=== PATIENT | male | born 1975 | race Two or more races ===

== ENCOUNTER 2017-02-08 18:17 | Emergency (ER) | payer MEDICAID ==
[~2017-02-08] VITALS: Ht 175.3 cm; Wt 81.6 kg
[2017-02-08] MEDS ORDERED: NEXIUM (18:28)
[2017-02-08] MEDS ORDERED: METFORMIN (18:28)
--- NOTE | 2017-02-08 18:39 | NUR ---
MD at bedside evaluating the patient, pending MD orders
[2017-02-08] MEDS ORDERED: MISCELLANEOUS MED XX ONE (18:45)
[2017-02-08] MEDS ORDERED: HYDROCODONE/APAP 5-325MG TABLET PO ONE (18:45)
[2017-02-08] MEDS ORDERED: PENICILLIN G BENZATHINE 2.4 MMU/4 ML DISP.SYRIN IM ONE ×2 (19:00→19:10)
[2017-02-08] MEDS ORDERED: HYDROCODONE/APAP 5-325MG TABLET ONE (19:10)
--- NOTE | 2017-02-08 19:12 | NUR ---
No adverse rxn to bicillin IM shot. Patient discharged to home in stable conditon. Written and verbal after care instructions given to patient. Patient verbalizes understanding of instructions.
== END 2017-02-08 19:14 | disposition home or self-care (01) ==
LOC: ER 18:20
DX: K08.89 Other specified disorders of teeth and supporting structures (principal); E11.9 Type 2 diabetes mellitus without complications; K21.9 Gastro-esophageal reflux disease without esophagitis; Z79.4 Long term (current) use of insulin
CPT/HCPCS: 96372; 99283; A4663

== ENCOUNTER 2017-03-07 18:53 | Emergency (ER) | payer MEDICAID ==
[~2017-03-07] VITALS: Ht 175.3 cm; Wt 80.7 kg
[~2017-03-07 18:53] MED LIST: METFORMIN; NEXIUM
--- NOTE | 2017-03-07 19:24 | NUR ---
Received report. Assumed care of pt at this time. Pt resting in position of comfort for self. MD at bedside. Awaiting further orders.
[2017-03-07] MEDS ORDERED: IV NORMAL SALINE 500 ML BAG IV ONE (19:30)
[2017-03-07 19:59] LABS: BASOPHILS % (AUTO) 0.4 % (0.0-2.0); EOSINOPHILS # (AUTO) 0.1 K/uL (0.0-0.7); HEMATOCRIT 39.8 % (40-50); HEMOGLOBIN 13.4 G/DL (14.0-18.0); LYMPHOCYTES # (AUTO) 3.4 K/UL (0.8-4.8); LYMPHOCYTES % (AUTO) 31.3 % (20.5-51.5); MEAN CORPUSCULAR HEMOGLOBIN 31.2 UUG (27.0-31.0); MEAN CORPUSCULAR HGB CONC 34 g/dL (32.0-37.0); MEAN CORPUSCULAR VOLUME 92.8 FL (82.0-92.0); MONOCYTES # (AUTO) 0.7 K/UL (0.1-1.30); NEUTROPHILS # (AUTO) 6.6 K/UL (1.8-8.9); NEUTROPHILS % (AUTO) 61.3 % (38.5-71.5); PLATELET COUNT (AUTO) 278 K/UL (150-450); RED BLOOD CELL COUNT(AUTO) 4.28 MIL/UL (4.7-6.1); WHITE BLOOD COUNT (AUTO) 10.8 K/UL (4.0-11.2)
[2017-03-07] MEDS ORDERED: ASPIRIN 325 MG TABLET PO ONE (20:00)
[2017-03-07] MEDS ORDERED: NITROGLYCERIN 0.4 MG/TAB BOTTLE SL ONE (20:00)
[2017-03-07 20:03] LABS: POTASSIUM 3.4 mmol/L (3.5-5.1)
[2017-03-07] MEDS ORDERED: ASPIRIN 325 MG TABLET ONE (20:06)
--- NOTE | 2017-03-07 20:07 | NUR ---
Pt sts slight improvement from first tablet nitro SL. Second tablet given, will monitor for effects of medication.
[2017-03-07 20:19] LABS: BILIRUBIN,DIRECT 0.1 mg/dL (0.0-0.2); BILIRUBIN,TOTAL 0.2 mg/dL (0.2-1.0); TOTAL PROTEIN, SERUM 7.8 g/dL (6.4-8.2)
[2017-03-07] MEDS ORDERED: CLONIDINE HCL 0.2 MG TABLET PO ONE (20:30)
[2017-03-07] MEDS ORDERED: MAG HYDROX/AL HYDROX/SIMETH 30 ML LIQUID UDC PO ONE (20:30)
[2017-03-07] MEDS ORDERED: DICYCLOMINE HCL 10 MG/5 ML UDC LIQ PO ONE (20:30)
[2017-03-07] MEDS ORDERED: CLONIDINE HCL 0.2 MG TABLET ONE (20:50)
[2017-03-07] MEDS ORDERED: MAG HYDROX/AL HYDROX/SIMETH 30 ML LIQUID UDC ONE ×2 (20:51)
[2017-03-07] MEDS ORDERED: DICYCLOMINE HCL 10 MG/5 ML UDC LIQ ONE (20:52)
--- NOTE | 2017-03-07 21:16 | NUR ---
MD aware of pts blood pressure. Pt admits to drinking 2 cups of coffee and 3 energy drinks. Pt stable for discharge per MD. IV dc'd, catheter intact. Drsg applied. No problems noted to site. Pt given ACI. Pt verbalized understanding of dc instructions. 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
[2017-03-07 21:18] VITALS: BP 161/105
== END 2017-03-07 21:20 | disposition home or self-care (01) ==
LOC: ER 18:57
DX: K21.9 Gastro-esophageal reflux disease without esophagitis (principal); E11.9 Type 2 diabetes mellitus without complications
CPT/HCPCS: 36415; 70030-TC; 71010; 85025; 85730; 93005; A4663; J7040

== ENCOUNTER 2018-09-19 15:30 | Emergency (ER) | payer MEDICAID ==
[~2018-09-19] VITALS: Ht 175.3 cm; Wt 81.2 kg
--- NOTE | 2018-09-19 15:41 | NUR ---
PT A/OX4, PRESENTS TO THE ER C/O INTERMITTENT LLQ ABD PAIN THAT STARTED APPROXIMATELY 10 DAYS AGO, PROVOKED FOLLOWING FOOD CONSUMPTION, DOES NOT RADIATE, 05/11. ABD SOUNDS ACTIVE IN ALL 4 QUADRANTS, VSS. PT DENIES C/P, SOB, N/V/D, DIZZIESS, HEADACHE.
--- NOTE | 2018-09-19 15:56 | NUR ---
KATIE BRADLEY AT BEDSIDE FOR MSE.
[2018-09-19] MEDS ORDERED: IV NORMAL SALINE 1000 ML BAG IV ONE (16:00)
--- NOTE | 2018-09-19 16:12 | NUR ---
AERIAL APPLICATOR PILOT AT BEDSIDE.
--- NOTE | 2018-09-19 16:15 | NUR ---
REPEATER OPERATOR AT BEDSIDE.
--- NOTE | 2018-09-19 16:27 | NUR ---
PT TAKEN TO RADIOLOGY FOR CT SCAN.
[2018-09-19 16:28] LABS: BASOPHILS # (AUTO) 0.1 K/uL (0.0-8.0); BASOPHILS % (AUTO) 0.9 % (0.0-2.0); EOSINOPHILS # (AUTO) 0.3 K/uL (0.0-0.7); EOSINOPHILS % (AUTO) 3.4 % (0.0-7.0); HEMATOCRIT 40.1 % (36.7-47.1); HEMOGLOBIN 13.9 g/dL (12.5-16.3); LYMPHOCYTES # (AUTO) 3.7 K/uL (20.0-40.0); LYMPHOCYTES % (AUTO) 40.9 % (20.5-51.5); MEAN CORPUSCULAR HEMOGLOBIN 32.5 uug (23.8-33.4); MEAN CORPUSCULAR HGB CONC 35 g/dL (32.5-36.3); MEAN CORPUSCULAR VOLUME 94.1 fL (73.0-96.2); MONOCYTES # (AUTO) 0.6 K/uL (2.0-10.0); MONOCYTES % (AUTO) 6.4 % (0.0-11.0); NEUTROPHILS # (AUTO) 4.3 K/uL (1.8-8.9); NEUTROPHILS % (AUTO) 48.4 % (38.5-71.5); PLATELET COUNT (AUTO) 301 K/uL (152-348); RED BLOOD CELL COUNT(AUTO) 4.27 MIL/uL (4.06-5.63)
[2018-09-19 16:37] LABS: POTASSIUM 3.8 mmol/L (3.5-5.1)
[2018-09-19 16:39] LABS: *BILIRUBIN,URIN NEGATIVE (NEGATIVE); *BLOOD, URINE NEGATIVE (NEGATIVE); *CLARITY,URINE CLEAR (CLEAR); *COLOR,URINE YELLOW (YELLOW); *KETONES,URINE NEGATIVE (NEGATIVE); *UROBILINOGEN,URINE 0.2 E.U./dl (NORMAL); LEUKOCYTE ESTERASE ,URINE NEGATIVE (NEGATIVE); NITRITE, URINE NEGATIVE (NEGATIVE); PH,URINE 5.5 (5.0-8.0); UGLUCOSE NEGATIVE (NEGATIVE)
[2018-09-19 16:44] LABS: BILIRUBIN,DIRECT 0.1 mg/dL (0.0-0.2); BILIRUBIN,TOTAL 0.4 mg/dL (0.2-1.0); TOTAL PROTEIN, SERUM 7.7 g/dL (6.4-8.2)
--- NOTE | 2018-09-19 16:48 | NUR ---
PT BACK IN ER FROM RADIOLOGY.
--- NOTE | 2018-09-19 17:41 | NUR ---
Patient discharged to home in stable conditon. Written and verbal after care instructions given. Patient verbalizes understanding of instructions. ALL BELONGINGS W/ PT. PT SELF-AMBULATED W/O DIFFICULTY. 20G IV ACCESS IN L AC REMOVED PRIOR TO D/C - INNER CANNULA INTACT. PT PROVIDED W/ RADIOLOGICAL IMAGING CD.
[2018-09-19 17:44] VITALS: BP 144/80
== END 2018-09-19 17:48 | disposition home or self-care (01) ==
LOC: ER 15:30
DX: R10.32 Left lower quadrant pain (principal); K21.9 Gastro-esophageal reflux disease without esophagitis; E11.9 Type 2 diabetes mellitus without complications; Z90.49 Acquired absence of other specified parts of digestive tract; Z79.899 Other long term (current) drug therapy
CPT/HCPCS: 36415; 70030-TC; 71045; 83690; 85025; 85730; 93005; A4663; J7030; J7040

== ENCOUNTER 2019-04-27 17:27 | Inpatient (IN) | payer MEDICAID ==
[~2019-04-27] VITALS: Ht 175.3 cm; Wt 81.6 kg
--- NOTE | 2019-04-27 17:36 | NUR ---
DR GUZMAN AT THE BEDSIDE FOR MSE.
[2019-04-27 17:53] LABS: BASOPHILS # (AUTO) 0.1 K/uL (0.0-8.0); BASOPHILS % (AUTO) 0.8 % (0.0-2.0); EOSINOPHILS % (AUTO) 0.1 % (0.0-7.0); HEMATOCRIT 38.8 % (36.7-47.1); HEMOGLOBIN 13.2 g/dL (12.5-16.3); LYMPHOCYTES # (AUTO) 2.4 K/uL (20.0-40.0); LYMPHOCYTES % (AUTO) 21.3 % (20.5-51.5); MEAN CORPUSCULAR HEMOGLOBIN 31.6 uug (23.8-33.4); MEAN CORPUSCULAR HGB CONC 34 g/dL (32.5-36.3); MEAN CORPUSCULAR VOLUME 92.6 fL (73.0-96.2); MONOCYTES # (AUTO) 0.5 K/uL (2.0-10.0); MONOCYTES % (AUTO) 4.7 % (0.0-11.0); NEUTROPHILS # (AUTO) 8.2 K/uL (1.8-8.9); NEUTROPHILS % (AUTO) 73.1 % (38.5-71.5); PLATELET COUNT (AUTO) 295 K/uL (152-348); RED BLOOD CELL COUNT(AUTO) 4.18 MIL/uL (4.06-5.63); WHITE BLOOD COUNT (AUTO) 11.2 K/uL (3.6-10.2)
[2019-04-27 18:02] LABS: CREATININE 1.1 mg/dL (0.6-1.3); POTASSIUM 3.7 mmol/L (3.5-5.1)
[2019-04-27 18:08] LABS: BILIRUBIN,DIRECT 0.1 mg/dL (0.0-0.2); BILIRUBIN,TOTAL 0.7 mg/dL (0.2-1.0); TOTAL PROTEIN, SERUM 8.2 g/dL (6.4-8.2)
[2019-04-27] MEDS ORDERED: CLONIDINE HCL 0.2 MG TABLET PO ONE (18:45)
[2019-04-27] MEDS ORDERED: IV NORMAL SALINE 1000 ML BAG IV ONE (18:45)
[2019-04-27] MEDS ORDERED: CLONIDINE HCL 0.2 MG TABLET ONE (18:51)
--- NOTE | 2019-04-27 18:55 | NUR ---
Pt out of ER for CT.
--- NOTE | 2019-04-27 19:00 | NUR ---
pt hand off and sbar received from outgoing day shift rn pt nad, talking with relative. denies pain, on supine hooked to the panel monitor. siderailsx2 up kept warm safe and comfortable. IVF at R AC infusing well. Pt will be admitted under Dr Webster, TELE, Rm [id number] Pt able to tolerate dinner (regular/ dm) Pt aware of admission.
[2019-04-27 19:05] LABS: *BILIRUBIN,URIN NEGATIVE (NEGATIVE); *BLOOD, URINE NEGATIVE (NEGATIVE); *CLARITY,URINE CLEAR (CLEAR); *COLOR,URINE LIGHT YELLOW (YELLOW); *KETONES,URINE TRACE (NEGATIVE); *UROBILINOGEN,URINE 0.2 E.U./dl (NORMAL); LEUKOCYTE ESTERASE ,URINE NEGATIVE (NEGATIVE); NITRITE, URINE NEGATIVE (NEGATIVE); UGLUCOSE NEGATIVE (NEGATIVE)
[2019-04-27 19:11] LABS: WBC,URINE NONE SEEN /HPF (0-3)
--- NOTE | 2019-04-27 19:42 | NUR ---
Dr. Giang on panel call with Dr. Darin Bowling. Patient accepted for admission to [facility], diagnosis: dehydration.
--- NOTE | 2019-04-27 21:10 | NUR ---
HAND OFF AND SBAR DONE TO NILAM MARQUEZ FOR TELE ROLLOVER CONFIRMED. PT STEPPED OUT OF ER TO SMOKE BUT STATES HE WILL COME BACK.
--- NOTE | 2019-04-27 21:19 | NUR ---
PT TRANSPORTED VIA GURNEY ACCOMPANIED BY STEVE ROCK PT NAD SIDERAILS X2 UP KEPT WARM SAFE AND COMFORTABLE
--- NOTE | 2019-04-27 21:25 | NUR ---
PATIENT RECEIVED VIA GURNEY WITH BELONGINGS, PATIENT IS ALERT AND ORIENTED X 4 , VERY PLEASANT AND COOPERATIVE. AT THIS TIME DENIES CHEST PAIN AND SOB BUT PRESENTS WITH NAUSEA. PATIENT IS ABLE TO AMBULATE ON OWN, GAIT IS STEADY. BLOOD PRESSURE STABLE 126/81 HR 98. IV ACCESS PATENT ON RIGHT AC. ORIENTED PATIENT TO ROOM AND CALL LIGHT. BED LOCKED IN POSITION SIDE RAILS UP X 2. WILL CONTINUE TO MONITOR.
[2019-04-27 21:40] VITALS: BP 126/81
[2019-04-27] MEDS ORDERED: DEXTROSE 50% 50 ML DISP.SYRIN IV PRN (21:45)
[2019-04-27] MEDS ORDERED: ONDANSETRON 4 MG/2 ML VIAL IV PRN (21:45)
[2019-04-27] MEDS ORDERED: HYDROCODONE/APAP 5-325MG TABLET PO PRN (21:45)
[2019-04-27] MEDS ORDERED: CLONIDINE HCL 0.1 MG TABLET PO PRN (21:45)
[2019-04-27] MEDS: METOPROLOL TARTRATE 25 MG TABLET PO SCH (22:03)
[2019-04-27 23:03] LABS: *AMPHETAMINE, URINE NEGATIVE (NEGATIVE); *BARBITURATE, URINE NEGATIVE (NEGATIVE); *CANNABINOID, URINE NEGATIVE (NEGATIVE); *COCCAINE, URINE NEGATIVE (NEGATIVE); *OPIATE, URINE NEGATIVE (NEGATIVE); *PHENCYCLIDINE SCREEN,URINE NEGATIVE (NEGATIVE)
[2019-04-27] MEDS: ZOLPIDEM 5 MG TABLET PO PRN (23:50)
[2019-04-28 01:00] VITALS: BP 134/83
[2019-04-28 04:45] VITALS: BP 140/94
[2019-04-28] MEDS: PANTOPRAZOLE SODIUM 40 MG TABLET.DR PO SCH (06:01)
[2019-04-28] MEDS: BLOOD SUGAR DIAGNOSTIC 1 EACH STRIP VI SCH ×4 (06:35→20:46)
[2019-04-28 06:43] LABS: BASOPHILS # (AUTO) 0.1 K/uL (0.0-8.0); BASOPHILS % (AUTO) 0.7 % (0.0-2.0); EOSINOPHILS # (AUTO) 0.1 K/uL (0.0-0.7); EOSINOPHILS % (AUTO) 1.7 % (0.0-7.0); HEMATOCRIT 36.9 % (36.7-47.1); HEMOGLOBIN 12.9 g/dL (12.5-16.3); LYMPHOCYTES # (AUTO) 2.8 K/uL (20.0-40.0); LYMPHOCYTES % (AUTO) 35.8 % (20.5-51.5); MEAN CORPUSCULAR HEMOGLOBIN 32.2 uug (23.8-33.4); MEAN CORPUSCULAR HGB CONC 35 g/dL (32.5-36.3); MEAN CORPUSCULAR VOLUME 92.1 fL (73.0-96.2); MONOCYTES # (AUTO) 0.6 K/uL (2.0-10.0); MONOCYTES % (AUTO) 8.2 % (0.0-11.0); NEUTROPHILS # (AUTO) 4.2 K/uL (1.8-8.9); NEUTROPHILS % (AUTO) 53.6 % (38.5-71.5); PLATELET COUNT (AUTO) 271 K/uL (152-348); RED BLOOD CELL COUNT(AUTO) 4.01 MIL/uL (4.06-5.63); WHITE BLOOD COUNT (AUTO) 7.8 K/uL (3.6-10.2)
--- NOTE | 2019-04-28 06:56 | NUR ---
Patient slept well last night , denies any chest pain, SOB or nausea. bed in lock position , call light is within reach. Vs stable. IV Access site remains intact and patent , labs were drawn in AM . Patient is in no apprent distress. Underground Drill Operator remains intact reading sinus rhythm HR 78.Endorsed to AM shift.
[2019-04-28 07:02] LABS: MAGNESIUM 1.9 mg/dL (1.8-2.4); PHOSPHOROUS 4.4 mg/dL (2.5-4.9); POTASSIUM 3.5 mmol/L (3.5-5.1)
[2019-04-28 07:40] VITALS: BP 132/92
[2019-04-28] MEDS: INSULIN REGULAR, HUMAN 300 UNIT/3 ML VIAL SQ PRN ×4 (07:48→20:48)
[2019-04-28] MEDS: METOPROLOL TARTRATE 25 MG TABLET PO SCH (08:30)
[2019-04-28] MEDS: ASPIRIN 81 MG TAB.CHEW PO SCH (08:30)
[2019-04-28] MEDS: METFORMIN HCL 500 MG TABLET PO SCH ×2 (08:30→17:17)
[2019-04-28 11:12] VITALS: BP 136/86
[2019-04-28] MEDS ORDERED: METOPROLOL TARTRATE 50 MG TABLET PO SCH (11:45)
[2019-04-28] MEDS: ACETAMINOPHEN 325 MG TABLET PO PRN ×2 (11:46→18:26)
[2019-04-28 15:30] VITALS: BP 133/89
[2019-04-28] MEDS ORDERED: SWABABLE VALVE TRANSFER SET EA MC ONE (17:44)
[2019-04-28] MEDS ORDERED: IV NORMAL SALINE 250 ML IV ONE (17:44)
[2019-04-28] MEDS ORDERED: IOHEXOL 350 100 ML INFUS..BTL ONE (17:44)
--- NOTE | 2019-04-28 18:05 | NUR ---
PATIENT RESTED THROUGHOUT DAY. NO DISTRESS NOTED. SAFETY MEASURES PROVIDED. PATIENT HAD A CTA OF THE BRAIN WITH CONTRAST. PATIENT SEEN BY NEUROLOGIST. NO ACUTE DISTRESS NOTED DURING SHIFT.
[2019-04-28 20:03] VITALS: BP_SYST 140; BP_DIAS 89; BP_DIAS 92
[2019-04-28] MEDS: METOPROLOL TARTRATE 50 MG TABLET PO SCH (20:41)
[2019-04-28] MEDS ORDERED: ATORVASTATIN 20 MG TABLET PO SCH (21:00)
[2019-04-28] MEDS ORDERED: NORTRIPTYLINE HCL 25 MG CAPSULE PO SCH (21:00)
[2019-04-28] MEDS ORDERED: ATORVASTATIN 10 MG TABLET PO SCH ×2 (21:00)
[2019-04-28] MEDS: ZOLPIDEM 5 MG TABLET PO PRN (22:04)
[2019-04-29 00:28] VITALS: BP 136/94
--- NOTE | 2019-04-29 01:02 | NUR ---
RECEIVED PT AWAKE. ALERT AND ORIENTEDX4. PT SHOWS NO SIGNS OF ACUTE DISTRESS. IV INTACT. AT BEDSIDE. SAFETY AND COMFORT PROVIDED. WILL CONTINUE TO MONITOR.
[2019-04-29 04:00] VITALS: BP 126/86
[2019-04-29] MEDS: PANTOPRAZOLE SODIUM 40 MG TABLET.DR PO SCH (06:02)
--- NOTE | 2019-04-29 06:22 | NUR ---
PT SLEPT THROUGHOUT THE SHIFT. PT SHOWS NO SIGNS OF ACUTE DISTRESS. IV INTACT. PRESCRIBED MEDICATION GIVEN AND PT TOLERATED IT WELL. SAFETY AND COMFORT PROVIDED. ALL NEEDS ARE MET. WILL ENDORSE ACCORDINGLY TO INCOMING NURSE FOR CONTINUITY OF CARE.
[2019-04-29] MEDS: BLOOD SUGAR DIAGNOSTIC 1 EACH STRIP VI SCH ×3 (06:35→16:30)
[2019-04-29 06:37] LABS: BASOPHILS % (AUTO) 0.5 % (0.0-2.0); EOSINOPHILS # (AUTO) 0.2 K/uL (0.0-0.7); EOSINOPHILS % (AUTO) 1.8 % (0.0-7.0); HEMATOCRIT 38.3 % (36.7-47.1); HEMOGLOBIN 13.4 g/dL (12.5-16.3); LYMPHOCYTES # (AUTO) 3.6 K/uL (20.0-40.0); LYMPHOCYTES % (AUTO) 41.6 % (20.5-51.5); MEAN CORPUSCULAR HEMOGLOBIN 32.1 uug (23.8-33.4); MEAN CORPUSCULAR HGB CONC 35 g/dL (32.5-36.3); MEAN CORPUSCULAR VOLUME 91.9 fL (73.0-96.2); MONOCYTES # (AUTO) 0.6 K/uL (2.0-10.0); MONOCYTES % (AUTO) 7.1 % (0.0-11.0); NEUTROPHILS # (AUTO) 4.2 K/uL (1.8-8.9); PLATELET COUNT (AUTO) 266 K/uL (152-348); RED BLOOD CELL COUNT(AUTO) 4.17 MIL/uL (4.06-5.63); WHITE BLOOD COUNT (AUTO) 8.6 K/uL (3.6-10.2)
[2019-04-29 06:49] LABS: CREATININE 1.1 mg/dL (0.6-1.3); MAGNESIUM 1.8 mg/dL (1.8-2.4); PHOSPHOROUS 4.5 mg/dL (2.5-4.9); POTASSIUM 3.6 mmol/L (3.5-5.1)
--- NOTE | 2019-04-29 07:05 | NUR ---
Patient in bed, awake and verbally responsive. No sins of Respiratory distress noted. No complain of Pain or Discomfort. Denies Chest Pain. Will continue to monitor. Right AC IV site Intact. Will continue to monitor.
[2019-04-29] MEDS: INSULIN REGULAR, HUMAN 300 UNIT/3 ML VIAL SQ PRN (08:04)
[2019-04-29] MEDS: METOPROLOL TARTRATE 50 MG TABLET PO SCH (08:49)
[2019-04-29] MEDS: ASPIRIN 81 MG TAB.CHEW PO SCH (08:49)
--- NOTE | 2019-04-29 09:58 | NUR ---
Patient was Picked up by [address] Angiogram at [facility].
--- NOTE | 2019-04-29 11:30 | NUR ---
patient came back from [facility] in stable condition.
[2019-04-29 11:43] VITALS: BP 157/101
[2019-04-29] MEDS ORDERED: ATOR20TA PO (12:26)
[2019-04-29] MEDS ORDERED: METO50TA16 PO (12:26)
[2019-04-29] MEDS ORDERED: NORT25CA PO (12:26)
[2019-04-29] MEDS ORDERED: ASPI81TA31 PO (12:26)
[2019-04-29] MEDS: ACETAMINOPHEN 325 MG TABLET PO PRN (13:41)
[2019-04-29 15:10] VITALS: BP 144/95
--- NOTE | 2019-04-29 16:00 | NUR ---
Received a discharge Order, with Discharge instructions: Discharge instructions <1. DC home2. take Lopressor, ASA, statin, and nortriptyline as ordered3., f/u with you OP wire wrapper machine operator and PCP in the next week4. smoking cessation, and avoid alcohol abuse>
--- NOTE | 2019-04-29 16:54 | NUR ---
Patient alert and oriented. No signs of respiratory distress noted. No SOB. No complain of pain or discomfort. denies Chest pain. Ambulatory steady. CTA Angigram done today at [facility], Cleared by LOC Schwarz, Discharge Instruction explained to patient and verbalized Understanding. Pharmacist Explained New Prescriptions to patient . All belongings was sent to patient. IV site Access, cadiac monitor and Wrist band was removed. patient Going Home via Private car accompanied by family.
== END 2019-04-29 17:05 | disposition home or self-care (01) | DRG 54 ==
LOC: ER 17:27 → TELE3 21:09 → MEDSURG3 04-29 13:02
PROVIDERS: ADMIT Internal Medicine; ATTEND Internal Medicine
PROC: B221YZZ Computerized Tomography (CT Scan) of Multiple Coronary Arteries using Other Contrast (ICD-10-PCS; principal; 2019-04-29)
DX: G43.109 Migraine with aura, not intractable, without status migrainosus (principal); E11.65 Type 2 diabetes mellitus with hyperglycemia; R07.89 Other chest pain; R00.0 Tachycardia, unspecified; F17.210 Nicotine dependence, cigarettes, uncomplicated; K21.9 Gastro-esophageal reflux disease without esophagitis; Z87.820 Personal history of traumatic brain injury; Z79.84 Long term (current) use of oral hypoglycemic drugs; Z82.49 Family history of ischemic heart disease and other diseases of the circulatory system; Z83.3 Family history of diabetes mellitus; I10 Essential (primary) hypertension; E66.9 Obesity, unspecified; Z68.26 Body mass index [BMI] 26.0-26.9, adult; E78.5 Hyperlipidemia, unspecified
CPT/HCPCS: 36415; 70030-TC; 70450; 70496; 71045; 80307; 83735; 84100; 85025; 93005; 93307; A4663; G0378; J1815; J2405; J7030; J7050; Q9967

== ENCOUNTER 2021-03-09 21:51 | Inpatient (IN) | payer BC, MEDICAID ==
[~2021-03-09] VITALS: Ht 175.3 cm; Wt 81.6 kg
[~2021-03-09 21:51] MED LIST changes: +ASPI81TA31 PO; +ATOR20TA PO; +METO50TA16 PO; +NORT25CA PO
--- NOTE | 2021-03-09 22:45 | NUR ---
Pt. arrived from home, chief complaint is cough with brown sputum, fever, weakness, and chills. Pt. has hx of medication controlled dm. Pt. also had pneumonia onces 11 yrs prior. Pt. took a 5 day course of zithromax but symptoms have worsened. Pt. Vss. Will continue to monitor.
[2021-03-09] MEDS ORDERED: DEXAMETHASONE SOD PHOSPHATE 4 MG INJ IV ONE (23:30)
[2021-03-09] MEDS ORDERED: CEFTRIAXONE 2 G in IV DEXTROSE 5% 100 ML IV ONE (23:30)
[2021-03-09] MEDS ORDERED: AZITHROMYCIN IV 500 MG in IV DEXTROSE 5% 250 ML IV ONE (23:30)
[2021-03-09 23:33] LABS: HEMATOCRIT 37.3 % (36.7-47.1); MEAN CORPUSCULAR HEMOGLOBIN 31.3 uug (23.8-33.4); MEAN CORPUSCULAR VOLUME 94.5 fL (73.0-96.2); PLATELET COUNT (AUTO) 200 K/uL (152-348)
[2021-03-09 23:43] LABS: CREATININE 1.2 mg/dL (0.6-1.3); POTASSIUM 4.4 mmol/L (3.5-5.1)
[2021-03-09 23:54] LABS: BILIRUBIN,DIRECT 0.1 mg/dL (0.0-0.2); BILIRUBIN,TOTAL 0.2 mg/dL (0.2-1.0); TOTAL PROTEIN, SERUM 7.4 g/dL (6.4-8.2)
[2021-03-10] MEDS ORDERED: CEFTRIAXONE /D5W 50ML IVPB **ER PYXIS IV ONE (00:08)
[2021-03-10] MEDS ORDERED: DEXAMETHASONE SOD PHOSPHATE 10 MG INJ ONE (00:08)
--- NOTE | 2021-03-10 01:00 | NUR ---
Dr. Giang on panel call with Werner Jones DNP.
[2021-03-10] MEDS ORDERED: DEXTROSE 50% 50 ML DISP.SYRIN IV PRN (01:15)
[2021-03-10] MEDS ORDERED: ACETAMINOPHEN 325 MG TABLET PO PRN (01:15)
[2021-03-10] MEDS ORDERED: ONDANSETRON 4 MG/2 ML VIAL IV PRN (01:15)
[2021-03-10] MEDS ORDERED: INSULIN REGULAR, HUMAN 300 UNIT/3 ML VIAL SQ PRN (01:15)
[2021-03-10] MEDS ORDERED: MAGNESIUM HYDROXIDE 30 ML LIQUID UDC PO PRN (01:15)
[2021-03-10] MEDS ORDERED: IV NS 1000 ML 1,000 ML IV PRN (01:15)
[2021-03-10] MEDS ORDERED: Z GUARD REMEDY PASTE 57 GM TUBE TOP PRN (01:15)
[2021-03-10] MEDS ORDERED: AZIT250T13 PO (01:47)
[2021-03-10] MEDS ORDERED: METF-494 PO (01:47)
[2021-03-10] MEDS ORDERED: ACET-2154 PO (01:47)
[2021-03-10] MEDS ORDERED: AZITHROMYCIN 500MG/ D5W 250ML IVPB **ER PYXIS ONLY IV ONE (02:30)
--- NOTE | 2021-03-10 03:00 | NUR ---
Pt. resting in bed, sleeping intermittently. Vss. Pt. is stable, denies any new onset sob or chest pain. Pt. continues to have cough. Pt. had chills and sweating. Pt. afebrile. Pt. provided clean dry clothes and linens. Pt. offered food, water, and blankets. Will continue to monitor.
--- NOTE | 2021-03-10 05:09 | NUR ---
Spoke with warehouse operations associate, currently waiting for an available private room for pt. to be admitted since pcr test is pending, pt. is still rule out covid per wet pour supervisor.
--- NOTE | 2021-03-10 06:56 | NUR ---
Gave report to JIMMY Diop.
[2021-03-10] MEDS ORDERED: PANTOPRAZOLE SODIUM 40 MG TABLET.DR PO SCH (07:00)
[2021-03-10] MEDS: BLOOD SUGAR DIAGNOSTIC 1 EACH STRIP VI SCH ×2 (07:30→08:41)
[2021-03-10] MEDS ORDERED: PANTOPRAZOLE SODIUM 40 MG TABLET.DR PO ONE (07:32)
[2021-03-10] MEDS ORDERED: INSULIN REGULAR, HUMAN 300 UNIT/3 ML VIAL ONE (07:39)
--- NOTE | 2021-03-10 08:03 | NUR ---
PT HAD DIABETIC TRAY BREAKFAST.
--- NOTE | 2021-03-10 09:45 | NUR ---
Yogi Gallagher,DNP in to see pt and stated pt to be discharged home.
[2021-03-10] MEDS ORDERED: GLYB5TAB7 PO (10:05)
[2021-03-10] MEDS ORDERED: PRED20TA PO (10:05)
[2021-03-10] MEDS ORDERED: DOXY-326 PO (10:05)
[2021-03-10] MEDS ORDERED: AMOX-427 PO (10:05)
[2021-03-10] MEDS ORDERED: ALBU6.7H9 INH (10:05)
--- NOTE | 2021-03-10 10:38 | NUR ---
Patient discharged to home in stable condition. Written and verbal after care instructions given. Patient verbalizes understanding of instructions. Stressed follow up or return to ER for worsening s/s.
--- NOTE | 2021-03-10 10:38 | NUR ---
IV removed. Catheter intact and site benign. Pressure and 4x4 gauze applied to site. No bleeding noted.
[2021-03-10 10:39] VITALS: BP 132/89
[2021-03-11] MEDS ORDERED: CEFTRIAXONE 2 G in IV DEXTROSE 5% 100 ML IV SCH
== END 2021-03-10 10:38 | disposition home or self-care (01) | DRG 177 ==
LOC: ER 21:51 → TRANSITION 03-10 02:39
PROVIDERS: ADMIT Nurse Practitioner Acute Care; ATTEND Nurse Practitioner Acute Care
DX: U07.1 COVID-19 (principal); J12.82 Pneumonia due to coronavirus disease 2019; J15.9 Unspecified bacterial pneumonia; J44.0 Chronic obstructive pulmonary disease with (acute) lower respiratory infection; E78.5 Hyperlipidemia, unspecified; F17.210 Nicotine dependence, cigarettes, uncomplicated; I10 Essential (primary) hypertension; E11.9 Type 2 diabetes mellitus without complications; Z79.84 Long term (current) use of oral hypoglycemic drugs
CPT/HCPCS: 36415; 70030-TC; 71045; 85025; 87040; 87070; A4663; G0378; J0456; J0696; J1100; J1815; J7030; U0003

== ENCOUNTER 2021-10-19 16:21 | Emergency (ER) | payer MEDICAID ==
[~2021-10-19] VITALS: Ht 175.3 cm; Wt 81.6 kg
[~2021-10-19 16:21] MED LIST changes: +ACET-2154 PO; +ALBU6.7H9 INH; +AMOX-427 PO; +DOXY-326 PO; +GLYB5TAB7 PO; +METF-494 PO; -METFORMIN; -NEXIUM; -NORT25CA PO; +PRED20TA PO
[2021-10-19] MEDS ORDERED: MAG HYDROX/AL HYDROX/SIMETH 30 ML LIQUID UDC PO ONE (16:45)
[2021-10-19] MEDS ORDERED: FAMOTIDINE. 20 MG/2 ML VIAL IV ONE ×2 (16:45→17:00)
[2021-10-19] MEDS ORDERED: LIDOCAINE VISCUS 2% 15 ML UDC MM ONE (16:45)
[2021-10-19] MEDS ORDERED: IV NORMAL SALINE 1000 ML BAG IV ONE (16:45)
[2021-10-19] MEDS ORDERED: MAG HYDROX/AL HYDROX/SIMETH 30 ML LIQUID UDC ONE (16:59)
[2021-10-19] MEDS ORDERED: LIDOCAINE VISCUS 2% 15 ML UDC ONE (16:59)
[2021-10-19 17:09] LABS: HEMATOCRIT 37.4 % (36.7-47.1); MEAN CORPUSCULAR HEMOGLOBIN 32.1 uug (23.8-33.4); MEAN CORPUSCULAR VOLUME 93.3 fL (73.0-96.2); PLATELET COUNT (AUTO) 330 K/uL (152-348)
[2021-10-19 17:11] LABS: *BILIRUBIN,URIN NEGATIVE (NEGATIVE); *BLOOD, URINE NEGATIVE (NEGATIVE); *CLARITY,URINE CLEAR (CLEAR); *COLOR,URINE YELLOW (YELLOW); *KETONES,URINE NEGATIVE (NEGATIVE); *UROBILINOGEN,URINE 0.2 E.U./dl (NORMAL); LEUKOCYTE ESTERASE ,URINE NEGATIVE (NEGATIVE); NITRITE, URINE NEGATIVE (NEGATIVE); UGLUCOSE NEGATIVE (NEGATIVE)
[2021-10-19 17:16] LABS: CREATININE 1.1 mg/dL (0.6-1.3); POTASSIUM 3.6 mmol/L (3.5-5.1)
[2021-10-19 17:22] LABS: BILIRUBIN,DIRECT 0.1 mg/dL (0.0-0.2); BILIRUBIN,TOTAL 0.4 mg/dL (0.2-1.0); TOTAL PROTEIN, SERUM 7.8 g/dL (6.4-8.2)
[2021-10-19] MEDS ORDERED: FAMO-132 PO ×2 (18:14→18:18)
[2021-10-19] MEDS ORDERED: ONDA4TAB5 PO ×2 (18:14→18:18)
[2021-10-19] MEDS ORDERED: SIME125T3 PO (18:18)
[2021-10-19 18:33] VITALS: BP 129/86
== END 2021-10-19 18:34 | disposition home or self-care (01) ==
LOC: ER 16:23
DX: R10.13 Epigastric pain (principal); E11.65 Type 2 diabetes mellitus with hyperglycemia; I10 Essential (primary) hypertension; E78.5 Hyperlipidemia, unspecified; F17.210 Nicotine dependence, cigarettes, uncomplicated; Z90.49 Acquired absence of other specified parts of digestive tract; Z79.82 Long term (current) use of aspirin; Z79.899 Other long term (current) drug therapy
CPT/HCPCS: 36415; 71045; 76705; 80048; 80076; 81003; 83690; 85025; 96361; 96374; 99285; 99406; J3490; A4663; J7030

== ENCOUNTER 2022-09-21 22:39 | Emergency (ER) | payer MEDICAID ==
[~2022-09-21] VITALS: Ht 175.3 cm; Wt 82.6 kg
[~2022-09-21 22:39] MED LIST changes: +FAMO-132 PO; +ONDA4TAB5 PO; +SIME125T3 PO
--- NOTE | 2022-09-21 23:54 | NUR ---
Dr. Azevedo at bedside. MSE in pprogress.
[2022-09-22] MEDS ORDERED: AMOXICILLIN-CLAVUL 875-125MG TABLET PO ONE
[2022-09-22] MEDS ORDERED: OXYCODONE/APAP 5-325 MG TABLET PO ONE
[2022-09-22] MEDS ORDERED: OXYCODONE/APAP 5-325 MG TABLET ONE (00:07)
[2022-09-22] MEDS ORDERED: AMOXICILLIN-CLAVUL 875-125MG TABLET ONE (00:07)
[2022-09-22] MEDS ORDERED: HYDR-3980 PO (00:22)
[2022-09-22] MEDS ORDERED: AMOX-430 PO (00:22)
[2022-09-22] MEDS ORDERED: BLOO-1730 MC (00:25)
--- NOTE | 2022-09-22 00:34 | NUR ---
Patient discharged to home in stable condition with . A/O x 4. NAD noted. Ambulatory with a steady gate. Written and verbal after care instructions given. Patient verbalizes understanding of instructions. Stressed follow up or return to ER for worsening s/s.
[2022-09-22 00:37] VITALS: BP 149/91
== END 2022-09-22 00:34 | disposition home or self-care (01) ==
LOC: ER 22:59
DX: H66.43 Suppurative otitis media, unspecified, bilateral (principal); I10 Essential (primary) hypertension; E11.9 Type 2 diabetes mellitus without complications; Z79.84 Long term (current) use of oral hypoglycemic drugs; F17.210 Nicotine dependence, cigarettes, uncomplicated; Z79.82 Long term (current) use of aspirin
CPT/HCPCS: A4663